=== PATIENT | female | born 2000 | race Caucasian/White ===

== ENCOUNTER 2021-10-26 20:07 | Emergency (ER) | payer OTHER ==
[~2021-10-26] VITALS: Ht 174 cm; Wt 73.1 kg
[2021-10-26] MEDS ORDERED: ACETAMINOPHEN 500 MG TAB PO ONE (22:30)
[2021-10-26] MEDS ORDERED: NS 1,000 ML IV ONE (23:05)
[2021-10-26 23:37] LABS: BASO % 0.2 % (0.0-1.0); HEMATOCRIT 37.1 % (36.0-47.0); LYMPH # 0.9 10^3/uL (1.5-5.0); LYMPH % 6.7 % (24.0-44.0); MEAN CORPUSCULAR HEMOGLOBIN 32.9 pg (27.0-33.0); MEAN CORPUSCULAR VOLUME 93.9 fl (80.0-96.0); MONO # 1.1 10^3/uL (0.0-0.8); MONO % 8.1 % (2.0-8.0); NEUTROPHILS # 11.9 10^3/uL (1.5-8.5); NEUTROPHILS % 84.6 % (36.0-66.0); PLATELET COUNT, AUTOMATED 210 10^3/uL (150-450); RED BLOOD COUNT 3.95 10^6/uL (4.00-5.40)
[2021-10-27 00:01] LABS: ERYTHROCYTE SEDIMENTATION RATE 41 mm/hr (0-20)
[2021-10-27 00:14] LABS: ALBUMIN 3.9 GM/DL (3.2-5.2); ALT/SGPT 18 U/L (12-78); BILIRUBIN,DIRECT 0.3 MG/DL (0.0-0.2); BLOOD UREA NITROGEN 11 MG/DL (7-18); C REACTIVE PROTEIN QUANTITATIV 6.78 MG/DL (0.00-0.30); CALCIUM LEVEL 8.6 MG/DL (8.5-10.1); CARBON DIOXIDE LEVEL 21 MEQ/L (21-32); CHLORIDE LEVEL 106 MEQ/L (98-107); CREATININE FOR GFR 1.13 MG/DL (0.55-1.30); GLUCOSE, FASTING 119 MG/DL (70-100); LIPASE 101 U/L (73-393); POTASSIUM SERUM 3.8 MEQ/L (3.5-5.1); SODIUM LEVEL 135 MEQ/L (136-145); TOTAL PROTEIN 7.3 GM/DL (6.4-8.2)
[2021-10-27 00:39] LABS: HCG, SERUM QUALITATIVE NEGATIVE (NEGATIVE)
[2021-10-27] MEDS ORDERED: KETOROLAC 30 MG/ML 1ML VIAL IV ONE (00:40)
[2021-10-27] MEDS ORDERED: PYRI1TAB5 PO (00:50)
[2021-10-27] MEDS ORDERED: BACT800T5 PO ×2 (00:50→01:33)
[2021-10-27] MEDS ORDERED: BACTRIM 160MG/800MG DS TAB PO ONE (00:55)
[2021-10-27] MEDS ORDERED: ISOVUE-370 76% 100ML VIAL As Ordered ONE (00:56)
[2021-10-27 01:45] VITALS: BP 117/67
== END 2021-10-27 02:11 | disposition home or self-care (01) ==
LOC: M ED 20:07
DX: N10 Acute pyelonephritis (principal); N34.2 Other urethritis; R79.82 Elevated C-reactive protein (CRP); R70.0 Elevated erythrocyte sedimentation rate; Z79.899 Other long term (current) drug therapy
CPT/HCPCS: 71046; 74177; 80048; 80076; 81000; 81015; 83605; 83690; 84703; 85025; 85652; 86140; 87040; 87088; 87186; 87486; 87581; 87633; 87798; 96361; 96374; 99284; J1885; Q9967

== ENCOUNTER → 2022-01-06 | Outpatient (REF) | payer OTHER ==
[~2022-01-06] MED LIST: BACT800T5 PO; PYRI1TAB5 PO
== END ==
LOC: M LAB REF 20:36
PROVIDERS: ATTEND Physician Assistant
DX: R30.0 Dysuria (principal)

== ENCOUNTER → 2022-02-23 | Outpatient (REF) | LOC: M EMP 15:57 | PROVIDERS: ATTEND Family Medicine | DX: Z11.52 Encounter for screening for COVID-19 (principal) ==

== ENCOUNTER → 2022-04-26 | Outpatient (REF) | LOC: M LABSMTC 11:37 | PROVIDERS: ATTEND Family Medicine | DX: Z11.52 Encounter for screening for COVID-19 (principal) ==

== ENCOUNTER → 2022-09-20 | Outpatient (REF) | payer OTHER | LOC: M LAB REF 09:45 | PROVIDERS: ATTEND Student in an Organized Health Care Education/Training Program | DX: R30.0 Dysuria (principal) ==